=== PATIENT | female | born 1955 | race Caucasian/White ===

== ENCOUNTER 2017-02-10 07:44 | Outpatient (CLI) | payer BC ==
--- NOTE | 2017-02-10 10:51 | ULT ---
ABDOMINAL ULTRASOUND: Date: 02/10/17 COMPARISON: None. HISTORY: Diarrhea. TECHNIQUE: Multiplanar Venegas scale sonographic imaging of the abdomen provided. FINDINGS: The imaged abdominal aorta and IVC appear within normal limits. The pancreas demonstrates grossly normal appearance. There is no focal liver lesion or intrahepatic biliary dilatation. No gallbladder wall thickening or pericholecystic fluid. No gallstones are noted. The cooler tender re ports a negative Vu's sign. The common bile duct measures in the 5-6 mm range, within normal limits for a patient of this age. The right kidney measures 10.9 x 4.3 x 3.8 cm. The left kidney measures 9.4 x 4.1 x 4.6 cm. There is no renal mass, hydronephrosis, or renal stone seen on either side. Spleen measures up to 8.7 cm, within normal limits. IMPRESSION: Unremarkable abdominal ultrasound. POS: [facility]
== END 2017-02-10 07:45 | disposition home or self-care (01) ==
LOC: ULT 07:44
PROVIDERS: ATTEND Family Medicine
DX: R19.7 Diarrhea, unspecified (principal)
CPT/HCPCS: 76700

== ENCOUNTER 2017-03-04 07:30 | Outpatient (CLI) | payer BC ==
--- NOTE | 2017-03-04 13:27 | NM ---
NUCLEAR MEDICINE HEPATOBILIARY SCAN WITH EJECTION FRACTION: HISTORY: A 61-year-old female with non-infectious gastroenteritis and colitis, unspecified. FINDINGS: The patient was injected with 5.1 mCi Technetium 99m mebrofenin intravenously. There was prompt upta ke of the tracer by the liver with excretion into the biliary tree and gallbladder and emptying into the bowel. After a 60-minute time interval, the patient was given 8 ounces of Ensure orally. Gallbl adder ejection fraction equals 32% with normal gallbladder ejection fraction being greater than 33%. IMPRESSION: Very minimally low ejection fraction of 32% with a normal gallbladder ejection fraction with Ensure b eing grater than 33%. POS: [facility]
== END 2017-03-04 07:31 | disposition home or self-care (01) ==
LOC: NM 07:30
PROVIDERS: ATTEND Family Medicine
DX: K52.9 Noninfective gastroenteritis and colitis, unspecified (principal)
CPT/HCPCS: 78227; A9537

== ENCOUNTER 2017-03-25 08:01 | Outpatient (CLI) | payer BC ==
--- NOTE | 2017-03-25 11:22 | CT ---
CT ABDOMEN AND PELVIS WITH IV CONTRAST: Technique: Multiple axial tomograms were obtained through the abdomen and pelvis with IV enhancement. History: Abdominal pain. Left upper quadrant pain. Diarrhea and nausea. FINDINGS: Lung bases are clear. Liver, spleen, and pancreas unremarkable. Stomach and duodenum unremarkable. Adrenal glands and kidneys appear normal. Small bowel loops show nonspecific distention without dilatation. Appendix is identified and appears unremarkable. There is stool throughout the colon. No evidence of diverticulitis. Aorta shows atherosclerotic calcification that is normal caliber. No adenopathy identified. Images through pelvis show unremarkable uterus and adnexa. IMPRESSION: No evidence of acute process. Nonspecific small bowel distention. POS: [facility]
[2017-03-25] MEDS ORDERED: Iopamidol 370 76% 100 ML VIAL ONE (13:09)
== END 2017-03-25 08:02 | disposition home or self-care (01) ==
LOC: CT 08:01
PROVIDERS: ATTEND Specialist
DX: R10.12 Left upper quadrant pain (principal); R10.30 Lower abdominal pain, unspecified
CPT/HCPCS: 74177

== ENCOUNTER 2018-03-16 09:54 | Outpatient (CLI) | payer BC | END 2018-03-16 09:55 | disposition home or self-care (01) | LOC: BICMAMMO 09:54 | PROVIDERS: ATTEND Family Medicine | DX: Z12.31 Encounter for screening mammogram for malignant neoplasm of breast (principal) | CPT/HCPCS: 77063; 77067 ==

== ENCOUNTER 2019-06-23 10:28 | Outpatient (CLI) | payer MEDICARE, BC ==
--- NOTE | 2019-06-23 11:16 | BD ---
BONE DENSITOMETRY USING DEXA: HISTORY: Postmenopausal screening for osteoporosis. Other disorders of bone density and structure, unspecifie d. FINDINGS: BMD (g/cm2) Right Hip: Femoral Neck: 0.574 T-Score: -2.5 Z-Score: -0.9 Total Femur 0.725 T-Score: -1.8 Z-Score: -0.5 Left Hip: Femoral Neck: 0.591 T-Score: -2.3 Z-Score: -0.8 Total Femur: 0.747 T-Score: -1.6 Z-Score: -0.3 Impression: Osteoporosis. POS: [facility]
--- NOTE | 2019-06-23 13:50 | MMO ---
Bilateral MAMMO Bilat Screen [facility]. CLINICAL HISTORY: Patient is 63 years old and is seen for screening. The patient has no family history of breast cancer. The patient has no personal history of cancer. VIEWS: The views performed were: bilateral craniocaudal with tomosynthesis and bilateral mediolateral oblique with tomosynthesis. FILMS COMPARED: The present examination has been compared to prior imaging studies performed at [facility] on 07/16/2013, 07/20/2014, 09/25/2016 and 03/16/2018. This study has been interpreted with the assistance of computer-aided detection. MAMMOGRAM FINDINGS: There are scattered fibroglandular densities. There are no suspicious masses, suspicious calcifications, or new areas of architectural distortion. IMPRESSION: THERE IS NO MAMMOGRAPHIC EVIDENCE OF MALIGNANCY. A ROUTINE FOLLOW-UP MAMMOGRAM IN 1 YEAR IS RECOMMENDED. THE RESULTS OF THIS EXAM WERE SENT TO THE PATIENT. ACR BI-RADS Category 1 - Negative MAMMOGRAPHY NOTE: 1. A negative mammogram report should not delay a biopsy if a dominant of clinically suspicious mass is present. 2. Approximately 10% to 15% of breast cancers are not detected by mammography. 3. Adenosis and dense breasts may obscure an underlying neoplasm. Reported by: LUIS ALFREDO WILLAMS MD Electonically Signed: [id number]
== END 2019-06-23 10:29 | disposition home or self-care (01) ==
LOC: BICMAMMO 10:28
PROVIDERS: ATTEND Family Medicine
DX: Z12.31 Encounter for screening mammogram for malignant neoplasm of breast (principal); M85.80 Other specified disorders of bone density and structure, unspecified site; M81.0 Age-related osteoporosis without current pathological fracture
CPT/HCPCS: 77063; 77067; 77080

== ENCOUNTER 2020-09-07 10:11 | Outpatient (CLI) | payer MEDICARE, BC | END 2020-09-07 10:12 | disposition home or self-care (01) | LOC: BICMAMMO 10:11 | PROVIDERS: ATTEND Family Medicine | DX: Z12.31 Encounter for screening mammogram for malignant neoplasm of breast (principal) | CPT/HCPCS: 77063; 77067 ==

== ENCOUNTER 2021-09-12 10:22 | Outpatient (CLI) | payer MEDICARE, BC | END 2021-09-12 10:23 | disposition home or self-care (01) | LOC: BICMAMMO 10:22 | PROVIDERS: ATTEND Family Medicine | DX: Z12.31 Encounter for screening mammogram for malignant neoplasm of breast (principal) | CPT/HCPCS: 77063; 77067 ==

== ENCOUNTER 2021-12-13 14:42 | Outpatient (CLI) | payer MEDICARE, BC ==
[2021-12-13 18:33] LABS: #Basophils 0.1 10x3/uL (0.0-0.2); #Eosinphils 0.2 10x3/uL (0.0-0.5); #Monocytes 0.8 10x3/uL (0.0-1.1); %Basophils 1.1 % (0.0-2.0); %Eosinophils 3.6 % (0.0-6.0); %Lymphocytes 38.9 % (18.0-47.0); %Monocytes 11.4 % (0.0-10.0); %Neutrophils 44.7 % (40.0-75.0); Hemoglobin 14.3 g/dL (12.0-15.5); Mean Corpuscular HGB CONC 34.3 g/dL (32.0-36.0); Mean Corpuscular Hemoglobin 29.8 pg (27.0-33.0); Mean Corpuscular Volume 86.9 fl (81.6-98.3); Mean Platelet Volume 10.9 fl (7.4-10.4); Platelet Count 207 10x3/uL (150-450); RBC Distribution Width 12.9 % (11.5-14.5); White Blood Cell (WBC) Count 6.6 10x3/uL (3.5-10.5)
[2021-12-13 18:43] LABS: INR-International Normal Ratio 0.9; Prothrombin Time 10.2 sec (9.5-12.1)
[2021-12-13 18:45] LABS: Anion Gap 15 mmol/L (10-20); BUN (Urea Nitrogen) 10 mg/dL (9.8-20.1); Calc. Creatinine Clearance 0 mL/min (70-130); Calcium 9.8 mg/dL (7.8-10.44); Carbon Dioxide 29 mmol/L (23-31); Chloride 99 mmol/L (98-107); Estimated GFR 94; Glucose 93 mg/dL (80-115); Potassium 3.5 mmol/L (3.5-5.1); Sodium 139 mmol/L (136-145)
== END 2021-12-13 14:43 | disposition home or self-care (01) ==
LOC: LABBT 14:42
PROVIDERS: ATTEND Orthopaedic Surgery
DX: Z01.818 Encounter for other preprocedural examination (principal); M17.12 Unilateral primary osteoarthritis, left knee; Z20.822 Contact with and (suspected) exposure to COVID-19
CPT/HCPCS: 80048; 85025; 85610; 87081; 87811; 93005; 93010

== ENCOUNTER 2021-12-18 05:32 | Observation (INO) | payer MEDICARE, BC ==
[2021-12-13 12:09] VITALS: BMI 31.1
[2021-12-18] MEDS ORDERED: Tranexamic Acid 1,000 MG/10 ML VIAL ONE (06:20)
[2021-12-18] MEDS ORDERED: Levofloxacin 500 mg/D5W 100 ml Premix Bag ONE (06:20)
[2021-12-18] MEDS ORDERED: Vancomycin 1 GM/200 ML BAG ONE (06:20)
[2021-12-18] MEDS ORDERED: Sodium Chloride 0.9% 0 ML ONE (06:20)
[2021-12-18] MEDS ORDERED: Bupivacaine/Epinephrine 0.25% 30 ML VIAL ONE (06:48)
[2021-12-18] MEDS ORDERED: CEFAZOLIN 2 GM VIAL ONE (06:50)
[2021-12-18] MEDS ORDERED: Sodium Chloride 0.9% 100 ML ONE (06:50)
[2021-12-18] MEDS ORDERED: Fentanyl 100 MCG/2 ML VIAL ONE ×3 (06:51→09:31)
[2021-12-18] MEDS ORDERED: Midazolam HCl 2 mg/2 ml Vial ONE (06:51)
[2021-12-18] MEDS ORDERED: Clindamycin/D5W 600 mg/50 ml Premix Bag ONE (06:59)
[2021-12-18] MEDS ORDERED: fentaNYL Citrate/PF 100 MCG/2 ML SYRINGE ONE (07:18)
[2021-12-18] MEDS ORDERED: Dexamethasone 20 MG/5 ML VIAL ONE (07:23)
[2021-12-18] MEDS ORDERED: Lidocaine 1% MPF 2 ML VIAL ONE (07:23)
[2021-12-18] MEDS ORDERED: Ondansetron PF 4 MG/2 ML Vial ONE (07:23)
[2021-12-18] MEDS ORDERED: ePHEDrine 50 MG/ML VIAL ONE (07:23)
[2021-12-18] MEDS ORDERED: PROPOFOL 200 MG/20 ML VIAL ONE (07:23)
[2021-12-18] MEDS ORDERED: Ketorolac Tromethamine 30 MG/ML VIAL ONE (07:23)
[2021-12-18] MEDS ORDERED: Ropivacaine 0.5% HCl/PF (150 MG/30 ML VIAL) ONE (07:23)
[2021-12-18] MEDS ORDERED: Ondansetron PF 4 MG/2 ML Vial IVP PRN (08:49)
[2021-12-18] MEDS ORDERED: Promethazine HCl 25 MG/ML VIAL IM PRN ×3 (08:49→09:30)
[2021-12-18] MEDS ORDERED: diphenhydrAMINE 25 MG CAP PO PRN (08:49)
[2021-12-18] MEDS ORDERED: Zolpidem Tartrate 5 MG TAB PO PRN ×2 (08:49→09:30)
[2021-12-18] MEDS: Senokot S 8.6-50 MG TAB PO SCH ×2 (09:00→20:11)
[2021-12-18] MEDS: Multivitamin W/ Minerals 1 TAB PO SCH (09:00)
[2021-12-18] MEDS: Apixaban 2.5 MG TAB PO SCH ×2 (09:00→20:01)
[2021-12-18] MEDS: Ferrous Gluconate 324 MG TAB PO SCH ×2 (09:00→20:10)
[2021-12-18] MEDS ORDERED: Promethazine HCl 25 MG/ML VIAL IVPB PRN (09:04)
[2021-12-18] MEDS ORDERED: Ondansetron HCl/PF 4 MG/2 ML Vial IVP PRN (09:04)
[2021-12-18] MEDS ORDERED: Fentanyl 100 MCG/2 ML VIAL IV PRN (09:19)
[2021-12-18] MEDS ORDERED: HYDROcodone/Acetaminophen 10/325 mg Tablet PO PRN ×2 (09:30)
[2021-12-18] MEDS ORDERED: traMADol HCl 50 MG TAB PO PRN ×2 (09:30)
[2021-12-18] MEDS ORDERED: Ropivacaine 0.2% 550 ML 550 ML NERVE BLCK SCH (09:30)
[2021-12-18] MEDS: Sodium Chloride 0.9% 1,000 ML IV SCH ×2 (10:14→14:31)
[2021-12-18] MEDS: Clindamycin/D5W 900 MG in Premix Bag 1 BAG IVPB SCH ×2 (14:32→20:01)
[2021-12-18] MEDS: Ondansetron PF 4 MG/2 ML Vial IVP PRN (15:59)
[2021-12-18] MEDS: Acetaminophen 325 MG TAB PO PRN (17:07)
[2021-12-18] MEDS ORDERED: Vancomycin 1 GM in Premix Bag 1 BAG IVPB SCH (19:00)
[2021-12-19] MEDS: Acetaminophen 325 MG TAB PO PRN (03:49)
[2021-12-19] MEDS: Sodium Chloride 0.9% 1,000 ML IV SCH ×2 (05:07→19:19)
[2021-12-19 05:47] LABS: Mean Corpuscular HGB CONC 33.7 g/dL (32.0-36.0); Mean Corpuscular Hemoglobin 30.3 pg (27.0-31.0); Mean Corpuscular Volume 89.8 fL (78.0-98.0); Mean Platelet Volume 8.5 fL (7.4-10.4); Platelet Count 161 thou/uL (130-400); RBC Distribution Width 11.5 % (11.5-14.5); Red Blood Cell (RBC) Count 3.98 mill/uL (4.20-5.40); White Blood Cell (WBC) Count 8.6 thou/uL (4.8-10.8)
[2021-12-19] MEDS: Senokot S 8.6-50 MG TAB PO SCH ×2 (09:00→21:18)
[2021-12-19] MEDS: Ferrous Gluconate 324 MG TAB PO SCH ×2 (09:03→21:18)
[2021-12-19] MEDS: Multivitamin W/ Minerals 1 TAB PO SCH (09:04)
[2021-12-19] MEDS: Apixaban 2.5 MG TAB PO SCH ×2 (09:27→21:17)
[2021-12-19] MEDS ORDERED: Acetaminophen/Codeine 30-300mg Tablet PO PRN ×2 (15:54→15:55)
[2021-12-19] MEDS: Ondansetron PF 4 MG/2 ML Vial IVP PRN (17:41)
[2021-12-20] MEDS: Sodium Chloride 0.9% 1,000 ML IV SCH ×2 (00:49→11:51)
[2021-12-20 02:55] VITALS: TEMP 98.3
[2021-12-20] MEDS: Acetaminophen 325 MG TAB PO PRN (04:56)
[2021-12-20 06:29] LABS: Hemoglobin 11.5 g/dL (12.0-16.0); Mean Corpuscular HGB CONC 34.4 g/dL (32.0-36.0); Mean Corpuscular Hemoglobin 30.8 pg (27.0-31.0); Mean Corpuscular Volume 89.6 fL (78.0-98.0); Mean Platelet Volume 8.7 fL (7.4-10.4); Platelet Count 150 thou/uL (130-400); RBC Distribution Width 11.4 % (11.5-14.5); Red Blood Cell (RBC) Count 3.74 mill/uL (4.20-5.40); White Blood Cell (WBC) Count 7.9 thou/uL (4.8-10.8)
[2021-12-20] MEDS ORDERED: Amlodipine 5 MG TAB PO SCH (09:00)
[2021-12-20] MEDS: Multivitamin W/ Minerals 1 TAB PO SCH (09:03)
[2021-12-20] MEDS: Senokot S 8.6-50 MG TAB PO SCH (09:03)
[2021-12-20 09:04] VITALS: BP 150/79
[2021-12-20] MEDS: Apixaban 2.5 MG TAB PO SCH (09:04)
[2021-12-20] MEDS: Ferrous Gluconate 324 MG TAB PO SCH (09:04)
[2021-12-20] MEDS ORDERED: Calcium Carbonate 500 MG ChewTAB PO SCH (09:15)
== END 2021-12-20 11:58 | disposition home or self-care (01) ==
LOC: SDC 05:32 → SJJU 10:25
PROVIDERS: ADMIT Orthopaedic Surgery; ATTEND Orthopaedic Surgery
PROC: 0SRD0J9 Replacement of Left Knee Joint with Synthetic Substitute, Cemented, Open Approach (ICD-10-PCS; principal; 2021-12-18)
PROC: 3E0T3BZ Introduction of Anesthetic Agent into Peripheral Nerves and Plexi, Percutaneous Approach (ICD-10-PCS; 2021-12-18)
DX: M17.12 Unilateral primary osteoarthritis, left knee (principal); I10 Essential (primary) hypertension; E78.5 Hyperlipidemia, unspecified; M81.0 Age-related osteoporosis without current pathological fracture; I48.91 Unspecified atrial fibrillation; E03.9 Hypothyroidism, unspecified; Z87.891 Personal history of nicotine dependence; Z79.890 Hormone replacement therapy; Z79.899 Other long term (current) drug therapy; Z88.1 Allergy status to other antibiotic agents; Z88.5 Allergy status to narcotic agent; Z88.8 Allergy status to other drugs, medicaments and biological substances; Z91.048 Other nonmedicinal substance allergy status; Z98.1 Arthrodesis status
CPT/HCPCS: 27447; 64448; 73560; 85027 ×2; 97110 ×3; 97116 ×2; 97530 ×2; A4306; C1713; C1776; 36415; J0690; J1100; J1885; J1956; J2250; J2405; J2704; J2795; J3010; J3370; J3490; J7050

== ENCOUNTER 2022-06-19 14:34 | Outpatient (CLI) | payer MEDICARE, BC | END 2022-06-19 14:35 | disposition home or self-care (01) | LOC: BICMAMMO 14:34 | PROVIDERS: ATTEND Internal Medicine Endocrinology, Diabetes & Metabolism | DX: M81.0 Age-related osteoporosis without current pathological fracture (principal) | CPT/HCPCS: 77080 ==

== ENCOUNTER 2022-07-31 12:20 | Outpatient (CLI) | payer MEDICARE, BC | END 2022-07-31 12:21 | disposition home or self-care (01) | LOC: BICRAD 12:20 | PROVIDERS: ATTEND Internal Medicine Cardiovascular Disease | DX: R07.81 Pleurodynia (principal) | CPT/HCPCS: 71046 ==

== ENCOUNTER 2024-04-26 13:07 | Outpatient (CLI) | payer MEDICARE, BC | END 2024-04-26 13:08 | disposition home or self-care (01) | LOC: BICMAMMO 13:07 | PROVIDERS: ATTEND Family Medicine | DX: Z12.31 Encounter for screening mammogram for malignant neoplasm of breast (principal) | CPT/HCPCS: 77063; 77067 ==

== ENCOUNTER 2025-02-03 11:26 | Outpatient (CLI) | payer MEDICARE, BC | END 2025-02-03 11:27 | disposition home or self-care (01) | LOC: BICMAMMO 11:26 | PROVIDERS: ATTEND Family Medicine | DX: Z78.0 Asymptomatic menopausal state (principal); M85.851 Other specified disorders of bone density and structure, right thigh; M85.852 Other specified disorders of bone density and structure, left thigh | CPT/HCPCS: 77080 ==